=== PATIENT | female | born 1995 | race Two or more races ===

== ENCOUNTER 2020-07-21 10:13 | Emergency (ER) | payer MEDICAID ==
[~2020-07-21] VITALS: Ht 162.6 cm; Wt 68.2 kg
[2020-07-21] MEDS ORDERED: FLUORESCEIN SODIUM 1 MG STRIP OU ONE (10:30)
[2020-07-21 12:00] VITALS: BP 127/84
== END 2020-07-21 12:06 | disposition home or self-care (01) ==
LOC: EMS 10:21
DX: H00.11 Chalazion right upper eyelid (principal)
CPT/HCPCS: 99283